=== PATIENT | female | born 1985 | race Caucasian/White ===

== ENCOUNTER → 2020-01-23 | Outpatient (CLI) | payer BC ==
[~2020-01-23] MED LIST: GIANVI 3 MG-0.01 TAB PO; IBU800 M1 PO; NATURAL IRON65 MG; PERCOCET 325 MG1 TA3 PO; PRENATAL1 TA1 PO; PRENATAL1 TA7 PO; PROTONIX20 MG PO; SLOW FE142 MG PO
== END ==
LOC: COL.CARD 11:54
DX: R00.2 Palpitations (principal)

== ENCOUNTER → 2020-06-29 | Outpatient (CLI) | payer BC ==
[~2020-06-29] MED LIST changes: +LEXAPRO 5MG5 MG PO; +PERCOCET 325 MG1 TA2 PO; +TUMS500 MG
== END ==
LOC: ZCOL.LAB
DX: Z20.828 Contact with and (suspected) exposure to other viral communicable diseases (principal)

== ENCOUNTER → 2024-01-20 | Outpatient (CLI) | payer BC | LOC: MC.RAD 10:34 | DX: Z12.31 Encounter for screening mammogram for malignant neoplasm of breast (principal) ==